=== PATIENT | female | born 1990 | race Caucasian/White ===

== ENCOUNTER 2022-10-09 23:49 | Outpatient (CLI) | payer OTHER, SELFPAY ==
[2022-10-10 00:17] VITALS: TEMP 36.8
--- NOTE | 2022-10-10 00:37 | CRLHL7_ITS ---
For Patients: As a result of the Century Cures Act, medical imaging exams and procedure reports are released immediately into your electronic medical record. You may view this report before your referring provider. If you have questions, please contact your health care provider. INDICATION: Vaginal bleeding TECHNIQUE: Pelvic OB transabdominal and endovaginal ultrasound. COMPARISON: None FINDINGS: Single living intrauterine gestation, as detailed below. heart rate: 131 beats per minute. orientation: Cephalic. Amniotic fluid: Normal with a maximum vertical pocket of 7.7 cm. Placenta: Posterior with the inferior placental margin located approximately 1.2 cm from the internal cervical os. Cervix: Closed and measuring 4.1 cm length. BIOMETRY: Biparietal diameter: 6.99 cm, 28 weeks 1 day. Head circumference: 26.31 cm, 28 weeks 4 days. Abdominal circumference: 23.46 cm, 27 weeks 6 days. Femur length: 5.03 cm, 27 weeks 0 days. Composite calculated ultrasound gestational age: 27 weeks 6 days. Estimated sonographic due date: 01/03/2023. Estimated weight: 1102 grams, corresponding with the 29th percentile. IMPRESSION: 1. Single live intrauterine , as above. 2. Posterior low-lying placenta with inferior margin located 1.2 cm from the internal cervical os. 3. Normal amniotic fluid with a maximum vertical pocket of 7.7 cm. Dictated by Syed Gray MD @ 10/10/2022 3:04:18 AM Dictated by: Syed Gray MD @ 10/10/2022 03:04:25 (Electronically Signed)
[2022-10-10 02:22] LABS: Basophils Absolute Auto 0.02 K/uL (0.00-0.30); Basophils Percent Auto 0.3 % (0.0-3.0); Eosinophils Absolute Auto 0.17 K/uL (0.00-0.50); Eosinophils Percent Auto 2.2 % (0.0-7.0); Hematocrit 35.1 % (33.0-51.0); Hemoglobin* 12.2 gm/dL (12.0-16.0); Immature Granulocytes Abs Auto 0.02 K/uL (0.00-0.30); Immature Granulocytes Pct Auto 0.3 %; Lymphocytes Percent Auto 15.5 % (20-44); Mean Corpuscular HGB Conc 35 gm/dL (32-36); Mean Corpuscular Hemoglobin 32 pg (26-34); Mean Corpuscular Volume 91 fL (80-100); Monocytes Percent Auto 7.7 % (0.0-11.0); Platelet Count* 157 K/uL (140-440); RDW Coefficient of Variation % 12.5 % (11.5-15.5); Red Blood Count 3.85 m/uL (4.00-5.20)
[2022-10-10 02:25] LABS: Slide Review Reflex No
--- NOTE | 2022-10-10 02:28 | P.OBLDTN_ITS ---
OB - Triage/Final Diagnosis Visit Information Narrative: The patient is a 32 year old 1 para 0 at 27 weeks gestation by LMP , who presents with vaginal bleeding. Patient with care at [facility]. States that she was sexually active tonight and about 2 hours later she woke up and went to the bathroom, she wiped and noticed bright red blood in the paper and drops at the toilet. She decided to go in to her nearest hospital. Patient states that she had a low lying placenta. Otherwise has been essentially uncomplicated. Denies pelvic pain, abdominal tightening, watery like discharge. Baby has been moving well. No constipation, diarrhea, no dysuria, urgency or frequency. Patient states that she was never recommended pelvic rest. Evaluation Laboratory results: Laboratory Tests 10/10/22 Range/Units 02:15 WBC 7.70 (4.50-11.00) K/uL RBC 3.85 L (4.00-5.20) m/uL Hgb 12.2 (12.0-16.0) gm/dL Hct 35.1 (33.0-51.0) % MCV 91 (80-100) fL MCH 32 (26-34) pg MCHC 35 (32-36) gm/dL RDW Coeff of Cesilia 12.5 (11.5-15.5) % Plt Count 157 (140-440) K/uL Neut % (Auto) 74.0 H (42.0-72.0) % Lymph % (Auto) 15.5 L (20-44) % Coleman % (Auto) 7.7 (0.0-11.0) % Eos % (Auto) 2.2 (0.0-7.0) % Baso % (Auto) 0.3 (0.0-3.0) % Neut # (Auto) 5.70 (1.7-7.0) K/uL Lymph # (Auto) 1.20 (0.90-2.90) K/uL Coleman # (Auto) 0.60 (0.00-0.90) K/UL Eos # (Auto) 0.17 (0.00-0.50) K/uL Baso # (Auto) 0.02 (0.00-0.30) K/uL Abs Immat Gran (auto) 0.02 (0.00-0.30) K/uL Imm/Tot Granulo (auto) 0.3 % Vital signs: Vital Signs - 24 hr 10/10/22 00:17 Temperature 98.3 F Comments: US: cervix closed and long measuring 4.1cm. SDP:7.7cm. Placenta posterior and low lying, less than 2 cm away from cervix. Normal growth parameters. Normal hemoglobin. Patient is RH negative. Fetus (Single) Heart Rate Baseline: 120 Final Diagnosis (1) Antepartum bleeding, third trimester: Status: Acute Problem details: Bleeding minimal, patient was monitored and bleeding was found to have decreased and only after wiping and darker in color. NST w/o contractions, otherwise appropriate for gestational age. US findings reassuring, placenta still low lying extensively discussed recommendation to follow pelvic rest. Repeat pelvic US at 32 weeks. She will receive Rhogam today. She plans to transfer care to our clinic. We are closer to her home. Patient in agreement with plan.
--- NOTE | 2022-10-10 06:43 | PC.OBNST ---
NST Note NST Note Start: 10/10/22 00:03 Freq: ONCE Status: Active Protocol: Document 10/10/22 06:42 AM (Rec: 10/10/22 06:43 AM [id number]) NST Note 1 Para (# of births) 0 EDC 01/03/23 Gestational Age In Weeks & Days 27 Weeks & 6 Days Patient Presented with Complaint(s) of Vaginal bleeding Appropriate for Gestational Age Yes ELENA Vaughn RNC Date 10/10/22 Appropriate for Gestational Age Yes ELENA Harden RN Date 10/10/22 OB NST charge Yes Complete NST Note via Write Note Yes The provider's electronic signature indicates the NST is reactive/appropriate for gestational age. *Note to provider: If an addendum is required, open the patient's chart and click on the note under the Nurse/Allied Health tab.
== END 2022-10-10 04:00 | disposition home or self-care (01) ==
LOC: OB OUT 10-10 00:14 → OB 10-10 00:15
PROVIDERS: Visit Provider Obstetrics & Gynecology
DX: O46.93 Antepartum hemorrhage, unspecified, third trimester (principal); O44.40 Low lying placenta NOS or without hemorrhage, unspecified trimester; Z3A.00 Weeks of gestation of pregnancy not specified
CPT/HCPCS: 36415; 59025; 76815; 76817; 85025; 85460; 85461; 88184; 99213; J2791

== ENCOUNTER 2022-10-10 17:45 | Outpatient (CLI) | payer OTHER, SELFPAY ==
[2022-10-10 17:51] VITALS: BP 131/77; PULSE 80; RESP 18; TEMP 36.3; O2SAT 99
--- NOTE | 2022-10-10 18:18 | CRLHL7_ITS ---
For Patients: As a result of the Century Cures Act, medical imaging exams and procedure reports are released immediately into your electronic medical record. You may view this report before your referring provider. If you have questions, please contact your health care provider. INDICATION: Vaginal bleeding. TECHNIQUE: Ultrasound OB pelvis transabdominal and transvaginal. Real-time garza-scale imaging of the fetus was performed as well as color Doppler and spectral Doppler analysis of the umbilical artery. COMPARISON: None. FINDINGS: Sonographic imaging demonstrates a single living intrauterine gestation. Fetus demonstrates a regular cardiac rate of 132 beats per minute. Fetus has a cephalic orientation. Amniotic fluid volume appears normal. The cervix measures 3.9 cm. The placenta is low lying, measuring 1.9 cm from the cervix to the placenta. IMPRESSION.: Viable intrauterine . Low-lying cervix without placenta previa. Dictated by Roshan Soares MD @ 10/10/2022 7:45:27 PM (Electronically Signed)
[2022-10-10 18:25] VITALS: BP 110/61; PULSE 82
[2022-10-10 18:42] LABS: Appearance Urine Cloudy (Clear); Bilirubin Urine Negative (Negative); Blood Urine 3+ (Negative); Color Urine Amber (Yellow); Glucose Urine Negative (Negative); Ketones Urine 1+ (Negative); Leukocyte Esterase Urine Negative (Negative); Nitrite Urine Negative (Negative); Protein Urine Negative (Negative); Specific Gravity Urine 1.015 (1.000-1.030); Urobilinogen Urine 0.2 (0.2-1.0)
[2022-10-10 19:16] LABS: RBC Urine >100 (0-2); Squamous Epithelial Cell Urine Few (None-Few); WBC Urine 0-2 (0-5)
[2022-10-10 21:02] LABS: Basophils Absolute Auto 0.02 K/uL (0.00-0.30); Basophils Percent Auto 0.2 % (0.0-3.0); Eosinophils Absolute Auto 0.18 K/uL (0.00-0.50); Hematocrit 36.5 % (33.0-51.0); Hemoglobin* 12.6 gm/dL (12.0-16.0); Immature Granulocytes Abs Auto 0.02 K/uL (0.00-0.30); Immature Granulocytes Pct Auto 0.2 %; Lymphocytes Percent Auto 17.3 % (20-44); Mean Corpuscular HGB Conc 35 gm/dL (32-36); Mean Corpuscular Hemoglobin 32 pg (26-34); Mean Corpuscular Volume 92 fL (80-100); Monocytes Percent Auto 8.4 % (0.0-11.0); Neutrophils Absolute Auto 6.37 K/uL (1.7-7.0); Neutrophils Percent Auto 71.9 % (42.0-72.0); Platelet Count* 185 K/uL (140-440); RDW Coefficient of Variation % 12.5 % (11.5-15.5); Red Blood Count 3.99 m/uL (4.00-5.20); White Blood Count* 8.88 K/uL (4.50-11.00)
[2022-10-10 21:09] LABS: Slide Review Reflex No
[2022-10-10 21:31] LABS: Fibrinogen* 555 mg/dL (200-450)
[2022-10-10 22:17] LABS: SARS PCR* Negative SARS-CoV-2 (Negative)
--- NOTE | 2022-10-10 22:26 | P.OBT_ITS ---
History of Present Illness History of Present Illness Date Seen: 10/10/22 History of Present Illness: 32 year old at 28 0/7 weeks gestation by 7 week US, SANDIE 01/03/2023 , presents with vaginal bleeding. She was reportedly seen last night bleeding following intercourse. She has a posterior low-lying placenta, [place] [facility] [place]. She had imaging last night, including a transvaginal ultrasound showing placenta to be 1.2 cm from the os and posterior. She received RhoGam during her hospital course last night, and was discharged with instructions for pelvic rest and to call with any recurrent bleeding. 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 Upon returning home, she had a spontaneous bleeding episode neck consists of passage of a clot the size of a tangerine and red bleeding. She has almost no vaginal bleeding upon presentation, just grainy, bloody discharge. She denies pain or contractions. She reports good movement. Her has otherwise been uncomplicated. 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 Hx: G1 No hx infertility She did not have resumption of regular menses after removal of Nexplanon, and became after her 2nd bleeding episode after removal No hx abn pap No hx STI Meds Home Medications and Allergies Home Medications Medication Instructions Recorded Confirmed Type nature made d3 1 pill PO DAILY 10/10/22 10/10/22 History vit no.95-ferrous 1 tab PO DAILY 10/10/22 10/10/22 History fumarate 28 mg-folic acid 800 mcg tablet ( Multivitamins) Allergies Allergy/AdvReac Type Severity Reaction Status Date / Time No Known Drug Allergies Allergy Verified 10/10/22 00:13 [facility] Surgical History (Updated 10/10/22 @ 22:42 by Karon Claros MD) H/O wisdom tooth extraction Social History (Updated 10/10/22 @ 22:42 by Karon Claros MD) Narrative: 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 She lives in [place] with her . She doesn't smoke, drink alcohol or use recreational drugs. Smoking Status: Never smoker History History 1 Elective abortions Para 0 Spontaneous abortions Hx # Term Pregnancies Ectopic pregnancies Hx # Pregnancies Multiple births Number of Living Children 0 OB - H&P: Exam Physical Exam Vital signs: Temp Pulse Resp BP Pulse Ox O2 Del Method 97.4 F L 82 18 110/61 99 11/29/22 17:51 10/10/22 18:25 10/10/22 17:51 10/10/22 18:25 10/10/22 17:51 10/10/22 17:51 Narrative: General: No acute distress Psych: Alert and oriented x3, full affect HEENT: Normocephalic, atraumatic Heart: Regular rate and rhythm, no murmur rub or gallop Lungs: Clear to auscultation bilaterally Abdomen: Soft, nontender, gravid Lower extremities: No edema or erythema Pelvic exam: Deferred. Results Labs Rh-negative. Otherwise, care not done here. tracing: Baseline 130, accelerations to 140, no decelerations, moderate variability Labs Laboratory Tests 10/10/22 10/10/22 10/10/22 Range/Units 21:10 20:54 20:54 WBC 8.88 (4.50-11.00) K/uL RBC 3.99 L (4.00-5.20) m/uL Hgb 12.6 (12.0-16.0) gm/dL Hct 36.5 (33.0-51.0) % MCV 92 (80-100) fL MCH 32 (26-34) pg MCHC 35 (32-36) gm/dL RDW Coeff of Cesilia 12.5 (11.5-15.5) % Plt Count 185 (140-440) K/uL Neut % (Auto) 71.9 (42.0-72.0) % Lymph % (Auto) 17.3 L (20-44) % Dougherty % (Auto) 8.4 (0.0-11.0) % Eos % (Auto) 2.0 (0.0-7.0) % Baso % (Auto) 0.2 (0.0-3.0) % Neut # (Auto) 6.37 (1.7-7.0) K/uL Lymph # (Auto) 1.50 (0.90-2.90) K/uL Dougherty # (Auto) 0.70 (0.00-0.90) K/UL Eos # (Auto) 0.18 (0.00-0.50) K/uL Baso # (Auto) 0.02 (0.00-0.30) K/uL Abs Immat Gran (auto) 0.02 (0.00-0.30) K/uL Imm/Tot Granulo (auto) 0.2 % Fibrinogen 555 H (200-450) mg/dL Urine Color (Yellow) Urine Appearance (Clear) Urine pH (5.0-8.5) Ur Specific [place] (1.000-1.030) Urine Protein (Negative) Urine Glucose (UA) (Negative) Urine Ketones (Negative) Urine Blood (Negative) Urine Nitrite (Negative) Urine Bilirubin (Negative) Urine Urobilinogen (0.2-1.0) Ur Leukocyte Esterase (Negative) Urine RBC (0-2) Urine WBC (0-5) Ur Squamous Epith Cells (None-Few) Urine Bacteria (None) SARS-CoV-2 (PCR) Negative SARS-CoV-2 (Negative) 10/10/22 Range/Units 18:25 WBC (4.50-11.00) K/uL RBC (4.00-5.20) m/uL Hgb (12.0-16.0) gm/dL Hct (33.0-51.0) % MCV (80-100) fL MCH (26-34) pg MCHC (32-36) gm/dL RDW Coeff of Cesilia (11.5-15.5) % Plt Count (140-440) K/uL Neut % (Auto) (42.0-72.0) % Lymph % (Auto) (20-44) % Dougherty % (Auto) (0.0-11.0) % Eos % (Auto) (0.0-7.0) % Baso % (Auto) (0.0-3.0) % Neut # (Auto) (1.7-7.0) K/uL Lymph # (Auto) (0.90-2.90) K/uL Dougherty # (Auto) (0.00-0.90) K/UL Eos # (Auto) (0.00-0.50) K/uL Baso # (Auto) (0.00-0.30) K/uL Abs Immat Gran (auto) (0.00-0.30) K/uL Imm/Tot Granulo (auto) % Fibrinogen (200-450) mg/dL Urine Color Rocio A (Yellow) Urine Appearance Cloudy A (Clear) Urine pH 6.0 (5.0-8.5) Ur Specific [place] 1.015 (1.000-1.030) Urine Protein Negative (Negative) Urine Glucose (UA) Negative (Negative) Urine Ketones 1+ A (Negative) Urine Blood 3+ A (Negative) Urine Nitrite Negative (Negative) Urine Bilirubin Negative (Negative) Urine Urobilinogen 0.2 (0.2-1.0) Ur Leukocyte Esterase Negative (Negative) Urine RBC >100 A (0-2) Urine WBC 0-2 (0-5) Ur Squamous Epith Cells Few (None-Few) Urine Bacteria None (None) SARS-CoV-2 (PCR) (Negative) Ultrasound Ultrasound Impression: Ultrasound today at 6:00 p.m.: Cephalic, normal fluid, cervix 3.9 cm in length. Posterior placenta 1.9 cm from the os. Ultrasound from 3:00 a.m.: Cephalic, maximum vertical pocket 7.7 cm, posterior low-lying placenta 1.2 cm from the os. Cervical length 4.1 cm. EFW 29%, 1102 g. Assessment and Plan Assessment and plan (1) Low lying placenta nos or without hemorrhage, third trimester: Problem comment: posterior and 1.9 cm from os on most recent imaging Status: Acute (2) Antepartum bleeding, third trimester: Problem comment: Status: Acute Plan recurrent bleeding, with 2nd episode in 24 hours. Stable maternal vital signs. Not in labor. Reassuring status. No anemia and fibrinogen high. Rh negative status. Transfer to higher level of care. Discussed transfer to [place] with Dr. Hammond, who accepts transfer. Per her recommendation, will given 4 g bolus of magnesium sulfate for neuroprotection and a dose of betamethasone prior to transfer.
[2022-10-10] MEDS: BETAMETHASONE SOD PHOS/ACETATE 6 MG/ML ML 12 MG IM (22:53)
[2022-10-10 23:24] VITALS: BP 123/58; PULSE 81
--- NOTE | 2022-10-11 00:44 | PC.OBNST ---
NST Note NST Note Start: 10/10/22 18:10 Freq: ONCE Status: Active Protocol: Document 10/11/22 00:42 AM (Rec: 10/11/22 00:44 AM [id number]) NST Note 1 Para (# of births) 0 EDC 01/03/23 Gestational Age In Weeks & Days 28 Weeks & 0 Days Patient Presented with Complaint(s) of Vaginal bleeding Appropriate for Gestational Age Yes ELENA Vaughn RNC Date 10/10/22 Appropriate for Gestational Age Yes ELENA Abbott RN Date 10/11/22 OB NST charge Yes Complete NST Note via Write Note Yes The provider's electronic signature indicates the NST is reactive/appropriate for gestational age. *Note to provider: If an addendum is required, open the patient's chart and click on the note under the Nurse/Allied Health tab.
== END 2022-10-10 23:30 | disposition still patient (30) ==
LOC: ED 18:01 → OB 21:28 → OB CLI 10-11 09:37 → OB 10-11 09:38
PROVIDERS: Visit Provider Obstetrics & Gynecology
DX: O46.93 Antepartum hemorrhage, unspecified, third trimester (principal); O44.43 Low lying placenta NOS or without hemorrhage, third trimester
CPT/HCPCS: 36415; 59025; 76815; 81003; 81015; 85025; 85384; 86850; 86870; 86880; 86900; 86901; 87635; 99213; J0702; J3475

== ENCOUNTER 2022-10-10 23:20 | Outpatient (CLI) | payer OTHER, SELFPAY | END 2022-10-10 23:21 | disposition home or self-care (01) | LOC: AMB 10-20 10:57 | PROVIDERS: Visit Provider Emergency Medicine | DX: O46.93 Antepartum hemorrhage, unspecified, third trimester (principal); Z3A.28 28 weeks gestation of pregnancy | CPT/HCPCS: A0425; A0428 ==

== ENCOUNTER 2024-04-24 09:02 | Outpatient (CLI) | payer OTHER, SELFPAY ==
[2024-04-24 12:46] LABS: Chlamydia DNA Amplified* NOT DETECTED (No Detected); GC DNA Amplified* NOT DETECTED (No Detected)
== END 2024-04-24 09:03 | disposition home or self-care (01) ==
PROVIDERS: Visit Provider Obstetrics & Gynecology
DX: Z11.3 Encounter for screening for infections with a predominantly sexual mode of transmission (principal)
CPT/HCPCS: 87491; 87591

== ENCOUNTER 2024-05-14 11:05 | Outpatient (CLI) | payer OTHER, SELFPAY | END 2024-05-14 11:06 | disposition home or self-care (01) | PROVIDERS: Visit Provider Obstetrics & Gynecology | DX: R39.9 Unspecified symptoms and signs involving the genitourinary system (principal) | CPT/HCPCS: 87086 ==

== ENCOUNTER 2024-12-11 11:29 | Outpatient (CLI) | payer BC, SELFPAY | END 2024-12-11 11:30 | disposition home or self-care (01) | PROVIDERS: Visit Provider Obstetrics & Gynecology | DX: Z31.9 Encounter for procreative management, unspecified (principal); Z13.1 Encounter for screening for diabetes mellitus; Z13.6 Encounter for screening for cardiovascular disorders | CPT/HCPCS: 83520; 84146; 84443 ==

== ENCOUNTER 2024-12-31 09:17 | Outpatient (CLI) | payer BC, SELFPAY ==
--- NOTE | 2024-12-31 09:30 | CRLHL7_ITS ---
For Patients: As a result of the Century Cures Act, medical imaging exams and procedure reports are released immediately into your electronic medical record. You may view this report before your referring provider. If you have questions, please contact your health care provider. CLINICAL HISTORY: Infertility evaluation TECHNIQUE: Real time, garza scale images were acquired of the pelvis using a transabdominal and transvaginal approach. Color Doppler analysis was performed of the ovaries. FINDINGS: The uterus appears unremarkable and measures 8 x 3.5 x 3.9 centimeters. Endometrium measures 8 millimeters. Ovaries are unremarkable. Right ovary measures 2.9 x 2.3 x 2 centimeters. Four subcentimeter follicles are noted in the right ovary and 3 subcentimeter follicles are noted on the left. Left ovary measures 2.6 x 1.7 x 2 centimeters complex left ovarian cyst measuring 1.5 x 1.4 x 1.6 centimeters Normal blood flow to both ovaries. Small amount of free fluid in the pelvis. IMPRESSION: Unremarkable pelvic ultrasound. Small amount of free fluid in the pelvis. Complex left ovarian cyst could be followed up in 8-12 weeks Dictated by Hollie Noel MD @ 01/01/2025 6:43:04 AM (Electronically Signed)
== END 2024-12-31 09:18 | disposition home or self-care (01) ==
LOC: US 09:17
PROVIDERS: Visit Provider Obstetrics & Gynecology
DX: Z31.9 Encounter for procreative management, unspecified (principal); N83.292 Other ovarian cyst, left side
CPT/HCPCS: 76830; 76856

== ENCOUNTER 2024-12-31 11:03 | Outpatient (CLI) | payer BC, SELFPAY | END 2024-12-31 11:04 | disposition home or self-care (01) | LOC: NFLDREF 11:04 | PROVIDERS: Visit Provider Obstetrics & Gynecology | DX: Z31.9 Encounter for procreative management, unspecified (principal) | CPT/HCPCS: 84144 ==

== ENCOUNTER 2025-01-27 07:51 | Outpatient (CLI) | payer BC, SELFPAY | END 2025-01-27 07:52 | disposition home or self-care (01) | LOC: NFLDREF 02-02 11:15 | PROVIDERS: Visit Provider Obstetrics & Gynecology | DX: Z31.9 Encounter for procreative management, unspecified (principal) | CPT/HCPCS: 84144 ==

== ENCOUNTER 2025-03-03 09:49 | Emergency (ER) | payer BC, SELFPAY ==
--- OUTSIDE RECORDS SUMMARY | 2025-03-03 09:51 | XMS_ITS | Clinical Summary ---
Author Organization [facility] Address [address] [place] [id number] Care Team Providers Care Pathology Collector Name Role Phone Pcp, No Primary Care Provider Unavailabl e Allergies Active Allergy Reactions Criticality Noted Date Comments Blood-Group Specific Substance Other - Describe In Comment Field 10/11/2022 Patient has Probable Passive Anti-D Antibody. Blood products may be delayed. Draw patient 24 hours prior to transfusion. For [facility] testing, draw one red top and two purple top tubes for all Type and Screen orders. Medications PNV Comb.[id number]-Htxt, Carbonyl-FA (PNV 29-1) 29 mg iron- 1 mg tab Take by mouth once daily. 0 2 Active Breast Pump PurchaseIndicat ions:S/P primary low transverse Electric breast pump for home use. Gestational age at delivery: 28w3d weeks. Reason for need: Risk for ineffective . Length of need: 99 months (lifetime use) 1 Each 2 Active Active Problems Problem Noted Date Diagnosed Date Placental abruption affecting delivery 2 S/P primary low transverse 10/14/2022 Vaginal bleeding in , third trimester 1 12/11/2021 Rh negative state in antepartum period, third tr imester 10/11/2022 Marginal placenta previa 09/29/2022 Supervision of normal first , antepartu m 05/31/2022 Overview (05/31/2022): Dated by: LMP, consistent with 1st tri US Prepregnancy BMI: no VS at this visit concerns/risk factors: Initial labs: (reviewed/completed) Early GCT: not indicated HSV: ASA: not indicated Previous deliveries reviewed by MD: Genetic Testing: The patient is unsure, will call back History of abnormal pap: Yes - Anatomy US 19-20 weeks: 24-28 week labs: Rhogam indicated: Tdap/Flu shot: 36 week GBS: No Known Allergies Covid Screening: PP Contraception plan: LGSIL on Pap smear of cervix 05/23/2017 Overview (06/07/2018): 05/10/16: LGSIL 05/23/17: NIL 05/27/18: NIL/HPV negative Provider plan: If both neg, can repeat both in 3 yrs (DUE 05/2021) Routine physical examination 04/01/2013 Overview (01/23/2022): Last physical: 01/23/2022 Last pap smear: 05/27/2018: co-testing: both neg (can do pap q3y or co-testing q5y) Last TD: 01/23/2022 Gardasil completed: 2006 Last Lipid: 05/27/2018: LDL: normal Last TSH: Last FBS: 05/27/2018: [id number]: normal Last mammogram: Last Colonoscopy: Last bone density scan: Resolved Problems Problem Noted Date Diagnosed Date Resolved Date Nexplanon in place 09/07/2020 Overview (01/23/2022): Nexplanon insertion: right arm, MADYSON Miller-BC 09/07/2020 Nexplanon removal: right arm, MADYSON Miller-BC 01/23/2022 Surveillance of previously p rescribed contraceptive pill 09/23/2010 02/26/2012 Encounters Date Type Department Care Team Description 03/03/2025 10:25 AM CDT Emergency [facility] [id number] from Last 3 Months Immunizations Immunization Administration Dates Next Due Human Papilloma Virus Vaccine 07/02/2007, 007,12/17/2006 Influenza Virus, Unspecified 09/05/2022 Influenza, IIV3 (Age >=3 years) 09/03/2021 Influenza, Injectable, Mdck, Quadrivalent, W/preservative 09/05/2022 Td (Age >=7 Years) 01/23/2022 Tdap 12/11/2022,12/06/2010 Family History Medical History Relation Name Comments Good Health Father Parkinsonism Maternal Grandfather Good Health Mother Good Health Sister 1 Good Health Sister 2 Relation Name Status Comments Brother Alive Father Alive Maternal Grandfather Maternal Grandmother Alive Mother Alive Paternal Grandfather Alive Paternal Grandmother Alive Sister 1 Alive Sister 2 Alive Social History Tobacco Use Types Packs/Day Years Used Date Smoking Tobacco: Never Smokeless Tobacco: Never Tobacco Cessation:Counseling Given: No Alcohol Use Standard Drinks/Week Comments Not Currently 0 (1 standard drink = 0.6 oz pur e alcohol) occ PHQ-2 Answer Date Recorded PHQ-2 TOTAL SCORE 0 12/11/2022 Financial Resource Strain Answer Date R ecorded Difficulty of Paying Living Expenses Not on file 11/12/2021 Difficulty of Paying Living Expenses Not on file 11/12/2021 Comments No Sex and Gender Information Value Date Recorded Sex Assigned at Not on file 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 No respiratory effort HR ~ 100. PPV with slow response Spontaneous but weak initial respiratory effory. Attempted stabilization on CPAP but with grunting, deep retractions. Intbated at 30 minutes of age for RDS/RF > Umbillica Last Filed Vital Signs Vital Sign Reading Time Taken Comments Blood Pressure 120/60 12/11/2022 8:12 AM AGRISCIENCE INSTRUCTOR Pulse 61 12/11/2022 8:12 AM AGRISCIENCE INSTRUCTOR Temperature 36.7 C (98.1 F) 10/24/2022 8:52 AM AGRISCIENCE INSTRUCTOR Respiratory Rate 12 10/24/2022 8:52 AM AGRISCIENCE INSTRUCTOR Oxygen Saturation 100% 12/11/2022 8:12 AM AGRISCIENCE INSTRUCTOR Inhaled Oxygen Concentration - - Weight 78.8 kg (173 lb 12.8 oz) 12/11/2022 8:12 AM AGRISCIENCE INSTRUCTOR Height 164.5 cm (5' 4.75) 10/14/2022 3:50 PM CS T Body Mass Index 29.15 10/14/2022 3:50 PM AGRISCIENCE INSTRUCTOR Plan of Treatment Health Maintenance Due Date Last Done Comments BMI (ht and wt on same day) for age 18+ 06/19/2023 06/19/2022, 05/03/2022, 02/18/2022, Additional history exists Depression screening for age 12+ 12/11/2023 12/11/2022, 11/07/2022, 06/19/2022, Additional history exists COVID-19 vaccine series ( season) 2024 07/28/2022, 09/23/2021, 01/08/2021, Additional history exists Influenza Vaccine (Season Ended) 2025 09/05/2022, 09/05/2022, 09/03/2021 Pap test for age 21-65 04/24/2029 , 04/24/2024, 05/27/2018, Additional history exists Tetanus booster 12/11/2032 12/11/2022, 01/10, 12/06/2010 HIV for age 15-65 Completed 06/19/2022 Hepatitis C screening for age 18-79 Completed 06/19/2022 Tdap Completed 12/11/2022, 12/06/2010 Pneumococcal series for age 6-49 Aged Out No longer eligible based on patient's age to complete this topic Procedures Procedure Name Priority Date/Time Associated Diagnosis Comments HPV HIGH RISK Routine 04/24/2024 9:15 AM CDT ANTI HIV 1/2 Routine 06/19/2022 4:21 PM CDT Supervision of normal first , antepartum (HC) ANTI HCV Routine 06/19/2022 4:21 PM CDT Supervision of normal first , antepartum (HC) from Last 3 Months or Most Recently Relevant to Health Maintenance Results * HPV HIGH RISK (04/24/2024 9:15 AM CDT) TYPE 16 Negative Negative 04/28/2024 3:14 PM CDT [facility] TYPE 18 Negative Negative 04/28/2024 3:14 PM CDT [facility] OTHER HIGH RISK TYPES Negative Negative 04/28/2024 3:14 PM CDT [facility] Other (Cervical) 04/24/2024 9:15 AM CDT 04/25/2024 9:55 AM CDT Narrative [facility] - 04/28/2024 3:14 PM CDT HPV types 16, 18, 31, 33, 35, 39, 45, 51, 52, 56, 58, 59, 66 and 68 DNA were undetectable or below the pre-set threshold. Methodology: Virginia Romeo 4800 HPV Test Sonal Nath MD MICROBIOLOGY Fi nal Result Performing Organization Address [facility] Co de Phone Number [facility] [address] [place] [address], * ANTI HCV (06/19/2022 4:21 PM CDT) HEPATITIS C ANTIBODY Non-React suzanne Non-React suzanne 06/19/2022 9:38 PM CDT [facility] Comment:Antibodies to HCV no t detected; does not exclude the possibility of exposure to HCV. Blood BLOOD SPECIMEN / Unknown Venipuncture / Unknown 06/19/2022 4:21 PM CDT 06/19/2022 4:21 PM CDT Wellington Browne MD SEND OUTS F inal Result [facility] [address] [place] [address], [place] * ANTI HIV 1/2 (06/19/2022 4:21 PM CDT) HIV-1/HIV-2 ANTIBODY Non-Reacti ve Non-Reacti ve 06/19/2022 9:18 PM CDT [facility] Comment:HIV-1 p24 and HIV-1/ HIV-2 Ab not detected. Blood BLOOD SPECIMEN / Unknown Venipuncture / Unknown 06/19/2022 4:21 PM CDT 06/19/2022 4:21 PM CDT us Wellington Browne MD SEND OUTS F inal Result Performing Organization Address City/[facility]/ZIP Co de Phone Number [facility] [address] [place] [address], [place] from Last 3 Months or Most Recently Relevant to Health Maintenance [place] [id number] Advance Directives * Full Code (Latest Code Status on File) Date Activated Date Inactivated Comments 10/14/2022 10:22 PM 10/18/2022 4:21 PM Question Answer Comments Code Status Discussion: Reviewed Preferences * Full Code Date Activated Date Inactivated Comments 10/11/2022 1:13 AM 10/14/2022 1:17 PM Question Answer Comments Code Status Discussion: Reviewed Preferences Care Teams Pathology Collector Relationship Specialty Start Date End Date Pcp, No . PCP - General 04/21/13
[2025-03-03 10:14] VITALS: BP 108/73; PULSE 70; RESP 16; TEMP 36.9; O2SAT 99; BMI 29.2
--- NOTE | 2025-03-03 11:14 | CRLHL7_ITS ---
For Patients: As a result of the Century Cures Act, medical imaging exams and procedure reports are released immediately into your electronic medical record. You may view this report before your referring provider. If you have questions, please contact your health care provider. Indication: Bleeding in early LMP: 01/07/2025. Technique: Real-time sonographic images of the pelvis were obtained transvaginally using grayscale, color, and Doppler imaging. Comparison: 12/31/2024. Findings: Uterus: Normal. Gestational sac: Mean sac diameter measures 0.9 centimeter, compatible with an average ultrasound age of 5 weeks 3 days. pole: [place]-rump length measures 0.6 centimeter, compatible with an average ultrasound age of 6 weeks 3 days. Yolk sac: Present. heart rate: None identified. Right ovary: Size: 2.4 x 1.1 x 1.4 centimeter. Appearance: Normal morphology. No masses. Left ovary: Size: 2.2 x 1.5 x 1.2 centimeter. Appearance: Normal morphology. No masses. Bladder: Visualized bladder is normal. Other: No free fluid. Impression: The crown-rump length is <7 mm, with no heartbeat visualized. Findings are suspicious for early failure. Recommend continued follow-up with beta HCG and ultrasound. Dictated by Chriss Brown MD @ 03/03/2025 12:20:48 PM (Electronically Signed)
--- NOTE | 2025-03-03 11:22 | ED.PREGNANCY ---
HPI - General Date Seen: 03/03/25 Chief complaint: Vaginal Bleeding Stated complaint: possible miscarriage Time Seen by Provider: 03/03/25 11:08 Source: patient Mode of arrival: ambulatory Limitations: no limitations History of Present Illness HPI Narrative: Patient is a 34-year-old female with currently 7 weeks and 6 days based on her last menstrual period presenting to the emergency department for concerned she is miscarriage. States she has not had ultrasound yet and is due to have her 1st appointment this week. States couple days ago she started having some mild spotting but then today she states she has have increase in the bleeding and cramping. She states if feels and looks like when she will have her periods. Her 1st she gave at 28 weeks due to placenta previa causing severe bleeding. Denies lightheadedness, dizziness, weakness, numbness, abdominal pain, chest pain, shortness of breath. No other concerns noted at this time. Related Data Home Medications ?Medication ?Instructions ?Recorded ?Confirmed vit no.95-ferrous 1 tab PO DAILY 10/10/22 12/31/24 fumarate 28 mg-folic acid 800 mcg tablet ( Multivitamins) Allergies Allergy/AdvReac Type Severity Reaction Status Date / Time No Known Drug Allergies Allergy Verified 12/31/24 10:49 Review of Systems Status of ROS: Reports: 10 or more systems reviewed and unremarkable except as noted in History and below [facility] Medical History Acute sinusitis ?J01.90 - Acute sinusitis, unspecified (ICD-10) Surgical History H/O wisdom tooth extraction ?K08.409 - Partial loss of teeth, unspecified cause, unspecified class (ICD-10) Social History Narrative: 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 She lives in [place] with her . She doesn't smoke, drink alcohol or use recreational drugs. Smoking Status: Never smoker How often do you have a drink containing alcohol: never AUDIT-C Alcohol total score: 0 Non-prescribed substance use: denies use Exam Narrative: Exam Narrative: Const: Well-nourished, Well-developed, in mild distress Eyes: PERRL, no conjunctival injection, and symmetrical lids HENT: Atraumatic external nose and ears. Moist mucous membranes. Neck: Symmetric, trachea midline, No thyromegaly. CVS: RRR, No murmurs or gallops. Peripheral pulses 2+ and equal in all extremities RESP: Unlabored respiratory effort. Clear to auscultation bilaterally. GI: Nontender/Nondistended, No rebound or guarding. MSK:Extremities w/o deformity, Normal Active ROM Skin: Warm, Dry. No rashes or lesions. Neuro: Normal Muscle tone, No focal neurological deficits. Psych: Awake, Alert, & Oriented x3. Appropriate mood and affect. Const: Vital Signs, click to edit/add: Vital Signs - 24 hr 03/03/25 10:14 03/03/25 12:30 Temperature 98.4 F 98.8 F Pulse Rate [Pulse Oximeter] 70 72 Respiratory Rate 16 18 Blood Pressure [Ri ght Upper Arm] 108/73 117/72 Pulse Oximetry 99 99 Oxygen Delivery Me thod Room Air Room Air Course Vital Signs Vital signs: Initial Vital Signs Temperature 98.4 F 03/03/25 10:14 Temperature Source Temporal Artery Scan 03/03/25 10:14 Pulse Rate 70 03/03/25 10:14 Respiratory Rate 16 03/03/25 10:14 Blood Pressure 108/73 03/03/25 10:14 Blood Pressure Mean 84 03/03/25 10:14 Blood Pressure Position Sitting 03/03/25 10:14 Pulse Oximetry 99 03/03/25 10:14 Oxygen Delivery Method Room Air 03/03/25 10:14 Vital Signs Temperature 98.4 F 03/03/25 10:14 Pulse Rate 70 03/03/25 10:14 Respiratory Rate 16 03/03/25 10:14 Blood Pressure 108/73 03/03/25 10:14 Pulse Oximetry 99 03/03/25 10:14 Oxygen Delivery Method Room Air 03/03/25 10:14 Temperature 98.8 F 03/03/25 12:30 Pulse Rate 72 03/03/25 12:30 Respiratory Rate 18 03/03/25 12:30 Blood Pressure 117/72 03/03/25 12:30 Pulse Oximetry 99 03/03/25 12:30 Oxygen Delivery Method Room Air 03/03/25 12:30 MDM - OB/Uterine Contractions MDM Narrative Medical decision making narrative: Patient is a 34-year-old female presenting to the emergency department for concerns of a miscarriage. Has not had an ultrasound yet. Will do an ultrasound to check for signs of ectopic or miscarriage. Will check a quantitative beta HCG along with a CBC and BMP. Vital signs are normal at this time. Lab work shows no concerning abnormalities. Hemoglobin within normal limits. Her beta hCG is 1726. Ultrasound returned showing signs consistent with a miscarriage. Patient has follow-up already on and she will keep this follow-up appointment. They can recheck beta-hCG and repeat ultrasound at that time if indicated. She is not bleeding through 1 pad per hour and is not require any further treatment at this time. Lab Data Labs: Lab Results 03/03/25 Range/Units 12:18 WBC 5.89 (4.50-11.00) K/uL RBC 4.58 (4.00-5.20) m/uL Hgb 14.1 (12.0-16.0) gm/dL Hct 42.3 (33.0-51.0) % MCV 92 (80-100) fL MCH 31 (26-34) pg MCHC 33 (32-36) gm/dL RDW Coeff of Cesilia 12.1 (11.5-15.5) % Plt Count 192 (140-440) K/uL Neut % (Auto) 62.2 (42.0-72.0) % Lymph % (Auto) 29.5 (20-44) % [place] % (Auto) 5.6 (0.0-11.0) % Eos % (Auto) 2.4 (0.0-7.0) % Baso % (Auto) 0.3 (0.0-3.0) % Neut # (Auto) 3.66 (1.7-7.0) K/uL Lymph # (Auto) 1.74 (0.90-2.90) K/uL [place] # (Auto) 0.30 (0.00-0.90) K/UL Eos # (Auto) 0.14 (0.00-0.50) K/uL Baso # (Auto) 0.02 (0.00-0.30) K/uL Abs Immat Gran (auto) 0.00 (0.00-0.30) K/uL Imm/Tot Granulo (auto) 0.0 % Sodium 139 (135-149) mmol/L Potassium 4.1 (3.6-5.1) mmol/L Chloride 108 (96-114) mmol/L Carbon Dioxide 24 (20-32) mmol/L Anion Gap 7 (7-15) mEq/L BUN 9 (5-24) mg/dL Creatinine 0.8 (0.5-1.5) mg/dL Estimated Creat Clear 83.95 Estimated GFR 98 ml/min Glucose 93 (60-115) mg/dL Calcium 9.5 (8.4-10.6) mg/dL HCG, Quant 1726.00 mIU/mL Imaging Data Transvaginal ultrasound: Attestation: I have reviewed the pertinent imaging results. Radiologist's impression: The crown-rump length is <7 mm, with no heartbeat visualized. Findings are suspicious for early failure. Recommend continued follow-up with beta HCG and ultrasound. Dictated by Chriss Brown MD @ 03/03/2025 12:20:48 PM Discharge Plan Discharge Clinical Impression: Miscarriage Patient Disposition: Home, Self-Care Condition: Stable Instructions: Miscarriage (ED) Additional Instructions: [facility] form than that your likely having a miscarriage as that may change with they do at your appointment on . If you start saturating 1 pad per hour return for re-evaluation. Prescriptions: No Action PNV cmb#95-ferrous fumarate-FA [ Multivitamins] 28 mg iron- 800 mcg tablet 1 tab PO DAILY Follow Up/Referrals: Provider,Not a Local [Primary Care Provider] - Stand Alone Forms: MyHealth Info Instructions
--- OUTSIDE RECORDS SUMMARY | 2025-03-03 12:18 | XMS_ITS | Clinical Summary ---
Author Organization [employer] [facility] Address [address] [place] [address] Care Team Providers Care Game Show Host Name Role Phone Pcp, No Primary Care Provider Unavailabl e Allergies Active Allergy Reactions Criticality Noted Date Comments Blood-Group Specific Substance Other - Describe In Comment Field 10/11/2022 Patient has Probable Passive Anti-D Antibody. Blood products may be delayed. Draw patient 24 hours prior to transfusion. For [employer] testing, draw one red top and two purple top tubes for all Type and Screen orders. Medications PNV Comb.Hg70-Pqnm, Carbonyl-FA (PNV 29-1) 29 mg iron- 1 [...] Date Resolved Date Nexplanon in place 09/07/2020 2 Overview (01/23/2022): Nexplanon insertion: right arm, MADYSON Miller-BC 09/07/2020 Nexplanon removal: right arm, MADYSON Miller-BC 01/23/2022 Surveillance of previously p rescribed contraceptive pill 09/23/2010 02/26/2012 Encounters Date Type Department Care Team Description 03/03/2025 10:25 AM CDT - 03/03/2025 10:29 AM CDT Emergency [facility] [place] [address] [place] [address] [place] [id number] from Last 3 Months Immunizations Immunization Administration [...] on file Legal Sex Female 7:43 AM QUALITY ANALYST Gender Identity Not on file Sexual Orientation [...] MD Complications:Abruptio Place nta Delivery Location:Hospital ( [address]) Comments:Vertex delive ry clear fluid. No respiratory effort HR ~ 100. PPV with slow response Spontaneous but weak initial respiratory effory. Attempted stabilization on CPAP but with grunting, deep retractions. Intbated at 30 minutes of age for RDS/RF > Umbillica Last Filed Vital Signs Vital Sign Reading Time Taken Comments Blood Pressure 120/60 12/11/2022 8:12 AM QUALITY ANALYST Pulse 61 12/11/2022 8:12 AM QUALITY ANALYST Temperature 36.7 C (98.1 F) 10/24/2022 8:52 AM QUALITY ANALYST Respiratory Rate 12 10/24/2022 8:52 AM QUALITY ANALYST Oxygen Saturation 100% 12/11/2022 8:12 AM QUALITY ANALYST Inhaled Oxygen Concentration - - Weight 78.8 kg (173 lb 12.8 oz) 12/11/2022 8:12 AM QUALITY ANALYST Height 164.5 cm (5' 4.75) 10/14/2022 3:50 PM CS T Body Mass Index 29.15 10/14/2022 3:50 PM QUALITY ANALYST Plan of Treatment Health Maintenance Due Date [...] 16 Negative Negative 04/28/2024 3:14 PM CDT [facility] TYPE 18 Negative Negative 04/28/2024 3:14 PM CDT [facility] OTHER HIGH RISK TYPES Negative Negative 04/28/2024 3:14 PM CDT [facility] Other (Cervical) 04/24/2024 9:15 AM CDT 04/25/2024 9:55 AM CDT Narrative [facility] - 04/28/2024 3:14 PM CDT HPV types 16, 18, 31, 33, 35, 39, 45, 51, 52, 56, 58, 59, 66 and 68 DNA were undetectable or below the pre-set threshold. Methodology: [place] Romeo 4800 HPV Test Sonal Nath MD MICROBIOLOGY Fi nal Result [facility] [address] [place] [address], * ANTI HCV (06/19/2022 4:21 PM CDT) HEPATITIS C ANTIBODY Non-React suzanne Non-React suzanne 06/19/2022 9:38 PM CDT [facility] Comment:Antibodies to HCV no t detected; does not exclude the possibility of exposure to HCV. Blood BLOOD SPECIMEN / Unknown Venipuncture / Unknown 06/19/2022 4:21 PM CDT 06/19/2022 4:21 PM CDT us Wellington Browne MD SEND OUTS F inal Result [facility] [address] [place] [address], * ANTI HIV 1/2 (06/19/2022 4:21 PM CDT) HIV-1/HIV-2 ANTIBODY Non-Reacti ve Non-Reacti ve 06/19/2022 9:18 PM CDT [facility] Comment:HIV-1 p24 and HIV-1/ HIV-2 Ab not detected. Blood BLOOD SPECIMEN / Unknown Venipuncture / Unknown 06/19/2022 4:21 PM CDT 06/19/2022 4:21 PM CDT us Wellington Browne MD SEND OUTS F inal Result Performing Organization Address City/[facility] [[email or web address]] Co de Phone Number [facility] [address] [place] [phone], from Last 3 Months or Most Recently Relevant to Health Maintenance Insurance [place] [id number] Advance Directives * Full Code (Latest Code Status on File) Date Activated Date Inactivated Comments 10/14/2022 10:22 PM 10/18/2022 4:21 PM Question Answer Comments Code Status Discussion: Reviewed Preferences * Full Code Date Activated Date Inactivated Comments 10/11/2022 1:13 AM 10/14/2022 1:17 PM Question Answer Comments Code Status Discussion: Reviewed Preferences Care Teams Game Show Host Relationship Specialty Start Date End Date Pcp, No . PCP - General 04/21/13
[2025-03-03 12:24] LABS: Basophils Absolute Auto 0.02 K/uL (0.00-0.30); Basophils Percent Auto 0.3 % (0.0-3.0); Eosinophils Absolute Auto 0.14 K/uL (0.00-0.50); Eosinophils Percent Auto 2.4 % (0.0-7.0); Hematocrit 42.3 % (33.0-51.0); Hemoglobin* 14.1 gm/dL (12.0-16.0); Lymphocytes Absolute Auto 1.74 K/uL (0.90-2.90); Lymphocytes Percent Auto 29.5 % (20-44); Mean Corpuscular HGB Conc 33 gm/dL (32-36); Mean Corpuscular Hemoglobin 31 pg (26-34); Mean Corpuscular Volume 92 fL (80-100); Monocytes Percent Auto 5.6 % (0.0-11.0); Neutrophils Absolute Auto 3.66 K/uL (1.7-7.0); Neutrophils Percent Auto 62.2 % (42.0-72.0); Platelet Count* 192 K/uL (140-440); RDW Coefficient of Variation % 12.1 % (11.5-15.5); Red Blood Count 4.58 m/uL (4.00-5.20); White Blood Count* 5.89 K/uL (4.50-11.00)
[2025-03-03 12:26] LABS: Slide Review Reflex No
[2025-03-03 12:30] VITALS: BP 117/72; PULSE 72; RESP 18; TEMP 37.1; O2SAT 99
[2025-03-03 12:36] LABS: Chloride* 108 mmol/L (96-114); Potassium* 4.1 mmol/L (3.6-5.1); Sodium* 139 mmol/L (135-149)
[2025-03-03 12:39] LABS: Anion Gap 7 mEq/L (7-15); Blood Urea Nitrogen* 9 mg/dL (5-24); Calcium* 9.5 mg/dL (8.4-10.6); Carbon Dioxide* 24 mmol/L (20-32); Creatinine* 0.8 mg/dL (0.5-1.5); Est. Creatinine Clearance* 83.95; Estimated Glomerular Filt Rate 98 ml/min; Glucose* 93 mg/dL (60-115)
== END 2025-03-03 14:00 | disposition home or self-care (01) ==
PROVIDERS: Emergency Provider Student in an Organized Health Care Education/Training Program
DX: O03.9 Complete or unspecified spontaneous abortion without complication (principal)
CPT/HCPCS: 36415; 76817; 80048; 84702; 85025; 99283; 99284

== ENCOUNTER 2025-03-05 07:11 | Outpatient (CLI) | payer BC, SELFPAY ==
--- NOTE | 2025-03-05 07:15 | CRLHL7_ITS ---
For Patients: As a result of the Cures Act, medical imaging exams and procedure reports are released immediately into your electronic medical record. You may view this report before your referring provider. If you have questions, please contact your health care provider. OB ULTRASOUND LESS THAN 14 WEEKS, 03/05/2025 CLINICAL HISTORY: Follow-up miscarriage. SURGERY: Prior . IMAGING: TV. LMP: 01/07/2025. SANDIE by LMP: 10/14/2025. GA: 8 weeks 1 day. PREVIOUS US: Yes. 03/03/2025. SANDIE by US: 10/24/2025. No FHR. CRL: N/A. FHR: N/A. GEST SAC: N/A. YOLK SAC: N/A. RIGHT OV: 2.9 x 2.1 x 2.3 cm. LEFT OV: 1.9 x 1.3 x 2.5 cm. IMPRESSION: There is no intrauterine or ectopic . No evidence of retained products. Normal ovaries. Marquise Moreau M.D. Diagnostic Radiologist [email or web address] Transcribed: 10:33 am DW/Dictated by: Marquise Moreau MD @ 03/05/2025 9:14:00 AM (Electronically Signed)
== END 2025-03-05 07:12 | disposition home or self-care (01) ==
LOC: US 07:11
PROVIDERS: Visit Provider Advanced Practice Midwife
DX: O03.9 Complete or unspecified spontaneous abortion without complication (principal)
CPT/HCPCS: 76817

== ENCOUNTER 2025-08-12 07:43 | Outpatient (CLI) | payer BC, SELFPAY | END 2025-08-12 07:44 | disposition home or self-care (01) | LOC: NFLDREF 08-16 19:03 | PROVIDERS: Visit Provider Obstetrics & Gynecology | DX: N97.0 Female infertility associated with anovulation (principal) | CPT/HCPCS: 84144 ==

== ENCOUNTER 2025-08-26 08:22 | Outpatient (CLI) | payer BC, SELFPAY ==
--- NOTE | 2025-08-26 08:15 | CRLHL7_ITS ---
For Patients: As a result of the Century Cures Act, medical imaging exams and procedure reports are released immediately into your electronic medical record. You may view this report before your referring provider. If you have questions, please contact your health care provider. Indication: Female infertility associated with anovulation Technique: Routine hysterosalpingogram. Fluoroscopic time 22 seconds. IMPRESSION: Normal patency of the fallopian tubes with spillage into the peritoneum. Normal exam. Dictated by Marquise Moreau MD @ 08/31/2025 9:48:52 AM (Electronically Signed)
--- NOTE | 2025-08-26 09:01 | P.PCN_ITS ---
Procedure Note Date Seen: 08/26/25 Date of procedure: 08/26/25 Will [facility] bill your pro fee for this procedure?: Yes Pre-op diagnosis: Infertility Post-op diagnosis: same Procedure: Hysterosalpingogram Procedure Description: After obtaining informed consent, the patient was placed in the dorsal lithotomy position on the x-ray table. An open-sided bivalve speculum was introduced into the vagina and the cervix easily visualized. The cervix and vagina were then prepped with Betadine. The anterior lip of the cervix was grasped with a single-tooth tenaculum for traction. A balloon tipped double- lumen catheter was then gently inserted through the cervical opening into the uterine cavity to the level of the fundus. The balloon was insufflated with 3 mL of air. The tenaculum and speculum were removed. The patient was repositioned in the supine position, covered, and the radiologist was called to the room. A hysterosalpingogram was then performed. A total of 5 cc of Optiray 300 water soluble contrast dye was injected through the double-lumen catheter under moderate pressure. There was immediate fill of the uterine cavity to the cornua and immediate fill of both fallopian tubes and free spillage of dye on both sides. Of note, the spillage was into the pelvis on the left side and in to the upper pelvis/abdomen on the right. The balloon was deflated. The catheter was removed. The patient tolerated the procedure well, though she did have moderate cramping discomfort during the procedure. She was discharged to home in stable condition and to [facility] Clomid [facility]. Anesthesia: none Surgeon: Petra Ch MD Condition: stable Disposition: same day
== END 2025-08-26 08:23 | disposition home or self-care (01) ==
LOC: RAD 08:22
PROVIDERS: Visit Provider Obstetrics & Gynecology
DX: N97.0 Female infertility associated with anovulation (principal); Z31.9 Encounter for procreative management, unspecified
CPT/HCPCS: 58340; 74740; A4649; Q9967

== ENCOUNTER 2025-11-06 08:00 | Outpatient (CLI) | payer BC, SELFPAY | END 2025-11-06 08:01 | disposition home or self-care (01) | LOC: NFLDREF 11-09 13:04 | PROVIDERS: Visit Provider Obstetrics & Gynecology | DX: Z31.9 Encounter for procreative management, unspecified (principal) | CPT/HCPCS: 84144 ==